=== PATIENT | female | born 2000 | race Two or more races ===

== ENCOUNTER 2024-03-01 14:58 | Emergency (ER) | payer OTHER ==
[~2024-03-01] VITALS: Ht 172.7 cm; Wt 61.2 kg
[2024-03-01] MEDS ORDERED: ACETAMINOPHEN 500 MG GEL..CAP PO ONE (17:15)
[2024-03-01 17:41] LABS: HEMATOCRIT 36.4 % (36.0-45.00); HEMOGLOBIN 12.1 g/dL (12.0-15.00); MEAN CELL VOLUME 73.4 fL (80.00-100.00); MEAN CORPUSCULAR HEMOGLOBIN 24.5 pg (27.00-32.0); MEAN CORPUSCULAR HGB CONC 33.3 g/dl (32.0-36.0); PLATELET COUNT 228 K/uL (150-450); RED BLOOD COUNT 4.96 M/uL (4.00-6.00); RED CELL DISTRIBUTION WIDTH 15.5 % (11.5-14.5)
[2024-03-01] MEDS ORDERED: ZITHROMAX500 MG PO (18:02)
== END 2024-03-01 18:12 ==
LOC: ER 14:59
PROVIDERS: Nurse Practitioner Family
DX: B34.9 Viral infection, unspecified (principal); R50.9 Fever, unspecified; D50.8 Other iron deficiency anemias; G43.909 Migraine, unspecified, not intractable, without status migrainosus; Z20.822 Contact with and (suspected) exposure to COVID-19

== ENCOUNTER 2024-03-04 11:30 | Emergency (ER) | payer OTHER ==
[~2024-03-04] VITALS: Ht 172.7 cm; Wt 61.2 kg
[~2024-03-04 11:30] MED LIST: ZITHROMAX500 MG PO
[2024-03-04] MEDS ORDERED: ONDANSETRON HCL 2 MG/ML VIAL IV STA (12:15)
[2024-03-04] MEDS ORDERED: ACETAMINOPHEN 500 MG GEL..CAP PO STA (12:15)
[2024-03-04] MEDS ORDERED: KETOROLAC TROMETHAMINE 15 MG VIAL IM STA (12:15)
[2024-03-04] MEDS ORDERED: FAMOTIDINE/PF 20 MG/2 ML VIAL IV STA (12:15)
[2024-03-04] MEDS ORDERED: CODEINE PHOSPHATE/GUAIFENESIN 5 ML ML PO STA (12:16)
[2024-03-04] MEDS ORDERED: 0.9 % SODIUM CHLORIDE 500 ML IV STA (12:16)
[2024-03-04] MEDS ORDERED: KETOROLAC TROMETHAMINE 30 MG VIAL ONE (12:59)
[2024-03-04] MEDS ORDERED: ONDANSETRON HCL 2 MG/ML VIAL ONE (12:59)
[2024-03-04] MEDS ORDERED: ACETAMINOPHEN 500 MG GEL..CAP PO ONE (12:59)
[2024-03-04] MEDS ORDERED: FAMOtidine 200mg/20ml VIAL ONE (13:00)
[2024-03-04 13:34] LABS: HEMATOCRIT 42.3 % (36.0-45.00); HEMOGLOBIN 13.7 g/dL (12.0-15.00); MEAN CELL VOLUME 74.8 fL (80.00-100.00); MEAN CORPUSCULAR HEMOGLOBIN 24.3 pg (27.00-32.0); MEAN CORPUSCULAR HGB CONC 32.5 g/dl (32.0-36.0); PLATELET COUNT 133 K/uL (150-450); RED BLOOD COUNT 5.66 M/uL (4.00-6.00); RED CELL DISTRIBUTION WIDTH 15.1 % (11.5-14.5)
[2024-03-04 13:49] LABS: ALBUMIN 4.5 gm/dL (3.4-5.0); BILIRUBIN TOTAL 0.33 mg/dL (0.3-1.2); CALCIUM 9.6 mg/dL (8.5-10.1); CREATININE SERUM 0.75 mg/dL (0.55-1.02); GFR 94.94; GLOBULINA 4.3 G/DL (2.4-3.5); POTASSIUM 3.82 mEq/L (3.5-5.1); TOTAL PROTEIN 8.8 gm/dL (6.4-8.2)
[2024-03-04] MEDS ORDERED: ACETAMINOPHEN500 M1 PO (15:39)
== END 2024-03-04 16:22 | disposition home or self-care (01) ==
LOC: ER 11:31
PROVIDERS: General Practice
DX: J09.X2 Influenza due to identified novel influenza A virus with other respiratory manifestations (principal)